=== PATIENT | male | born 1955 | race Caucasian/White ===

== ENCOUNTER → 2017-04-04 | Outpatient (CLI) | payer BC | LOC: OD 17:20 | PROVIDERS: ATTEND Surgery | DX: D17.0 Benign lipomatous neoplasm of skin and subcutaneous tissue of head, face and neck (principal) | CPT/HCPCS: 88304 ==

== ENCOUNTER → 2018-02-19 | Outpatient (CLI) | payer BC ==
[~2018-02-19] MED LIST: ALBUTEROL SULFATE 0.083% NEB 2.5 MG/3 ML AMPUL NEB ONE
--- NOTE | 2018-02-20 17:25 | Pulmonary Function Test ---
Pulmonary Function Test Date of Procedure:: 02/20/18 INDICATION:: Dyspnea Referring Provider: Dr. Garcia Hairspring Adjuster: Elizabeth Cook BUNDLE SHAKER - Report Spirometry: FVC 4.21 L 92% postbronchodilator 4.70 L 102% FEV1 1.58 L 43% postbronchodilator 2.04 L 55% FEV1/FVC % 38 postbronchodilator 43 predicted 79 FEF 25-75% 0.39 L 11% postbronchodilator 0.55 L 15% Lung Volume: Total lung capacity 7.01 L 102% Vital capacity 4.21 L 92% Inspiratory capacity 2.27 L FRC N2 4.74 L 123% ERV 0.88 L RV 2.81 L 114% RV/TLC % 40 predicted 38 Diffusion Capactity: DLCO 16.9 71% DLCO/VA 3.42 88% Impression: Severe obstructive ventilatory defect with good response to bronchodilator therapy. No hyperinflation or air trapping. No restrictive ventilatory defect. Mild decrease in diffusion capacity.
== END ==
LOC: RT 07:04
PROVIDERS: ATTEND Family Medicine
DX: R06.00 Dyspnea, unspecified (principal)
CPT/HCPCS: 94060; 94727; 94729